=== PATIENT | female | born 1940 | race Caucasian/White ===

== ENCOUNTER 2023-07-19 12:30 | Emergency (ER) | payer MEDICARE, BC ==
[2023-07-19] MEDS ORDERED: Ondansetron ODT 4 MG TAB ONE (13:53)
[2023-07-19] MEDS ORDERED: Glucagon 1 MG/ML KIT ONE (13:53)
== END 2023-07-19 16:03 | disposition home or self-care (01) ==
LOC: CSHERS 12:30
DX: T17.228A Food in pharynx causing other injury, initial encounter (principal)
CPT/HCPCS: 71045; 93005; J1611; 93010; 96372; Q0162